=== PATIENT | male | born 1985 | race Caucasian/White ===

== ENCOUNTER 2023-09-18 10:08 | Day surgery (SDC) | payer OTHER ==
[2023-09-18] VITALS (9 sets, daily range): BP systolic 137–178; BP diastolic 65–88; PULSE 51–71; TEMP 99.3
[~2023-09-18] VITALS: Ht 180.3 cm; Wt 140.0 kg
[2023-09-18] MEDS ORDERED: 1/2 NS 1,000 ML IV SCH (10:30)
[2023-09-18] MEDS ORDERED: PRINZIDE 12.5 M1 TAB PO (10:38)
[2023-09-18] MEDS ORDERED: ASPIRIN 81M81 MG/TA2 PO (10:39)
[2023-09-18] MEDS ORDERED: TOPROL XL 25MG25 MG PO (10:40)
[2023-09-18 10:52] LABS: HEMATOCRIT 42.2 % (42.0-52.0); HEMOGLOBIN 14.9 g/dl (13.5-18.0); MEAN CELL VOLUME 90 fl (80.0-100.0); MEAN CORPUSCULAR HEMOGLOBIN 32 pg (27-31); MEAN CORPUSCULAR HGB CONC 35 g/dl (33.0-37.0); MEAN PLATELET VOLUME 9.9 fl (7.4-10.4); PLATELET COUNT 212 K/mm3 (130-400); RED BLOOD COUNT 4.71 M/mm3 (4.20-5.60); REDCELL DISTRIBUTION WIDTH-CV 12.9 % (11.5-14.5)
[2023-09-18 11:04] LABS: CALCIUM 9.5 mg/dL (8.4-10.2); CREATININE, serum 1.11 mg/dL (0.72-1.25); POTASSIUM 4.2 mmol/L (3.5-4.5)
[2023-09-18 11:28] LABS: INR 1.1 (0.8-3.0); PROTHROMBIN TIME 11.9 SECONDS (9.7-12.8)
[2023-09-18 11:30] LABS: PARTIAL THROMBOPLASTIN TIME 30.1 SECONDS (26.0-37.0)
--- NOTE | 2023-09-18 14:12 | NUR ---
See merge for all medication, assessment, intervention, and vital sign times.
[2023-09-18] MEDS ORDERED: fentaNYL 50 MCG/ML 2 ML VIAL IV SCH (14:25)
[2023-09-18] MEDS ORDERED: Midazolam 2 MG/2 ML VIAL IV SCH (14:25)
[2023-09-18] MEDS ORDERED: Heparin 1,000 UNITS/ML 10 ML Multi-Dose VIAL IV SCH (14:26)
[2023-09-18] MEDS ORDERED: Heparin 1,000 UNITS/ML 10 ML Multi-Dose VIAL IA SCH (14:26)
[2023-09-18] MEDS ORDERED: Iohexol 350 - 100 ML VIAL INCOR ONE (14:27)
[2023-09-18] MEDS ORDERED: Nitroglycerin 100 MCG/ML (Cath Lab) 10 ML VIAL IA SCH (14:28)
[2023-09-18] MEDS ORDERED: Verapamil 2.5 MG/ML 2 ML VIAL IV SCH (14:28)
--- NOTE | 2023-09-18 14:46 | NUR ---
Bedside report completed with Bernadette RN. Insertion site, reviewed, first set of vitals reviewed, 100ml/hr 0.45% NaCl via dial flow reviewed. Bernadette RN denies questions/concerns.
--- NOTE | 2023-09-18 14:49 | NUR ---
Report received from Laura Cantu.
--- NOTE | 2023-09-18 17:16 | NUR ---
All air removed in 2-3 ml incriments.No bleeding observed at right radial site.Dressing to right wrist observed clean,dry,intact.
--- NOTE | 2023-09-18 17:16 | NUR ---
Discharge instructions given to pt.Pt verbalizes understanding.
--- NOTE | 2023-09-18 17:34 | NUR ---
Pt escorted out via wheelchair by this nurse.
== END 2023-09-18 17:35 ==
LOC: COL.CAR 10:08
PROVIDERS: Internal Medicine Cardiovascular Disease
DX: R07.89 Other chest pain (principal); R94.39 Abnormal result of other cardiovascular function study; I10 Essential (primary) hypertension; I42.8 Other cardiomyopathies; Z87.891 Personal history of nicotine dependence
CPT/HCPCS: J1644; J2250; J3010; Q9967